=== PATIENT | female | born 1945 | race Caucasian/White ===

== ENCOUNTER 2018-08-25 13:54 | Emergency (ER) | payer OTHER, BC ==
--- NOTE | 2018-08-25 14:16 | EDPHY ---
HPI/HX/ROS/PE/MDM Narrative: CHIEF COMPLAINT: Fall HPI: This patent is a 73-year-old female with history of sarcoidosis, anemia. This afternoon around 13:30, she was walking into [employer] for lunch and tripped over a broken section of curb. She took the majority of the impact on her right forehead, and her glasses broke in the process. She has significant swelling and bruising over her right eye. She denies any loss of consciousness, denies any nausea or neck pain. She did try to catch herself on her right hand and sustained a small abrasion to her right wrist, but denies any hand or wrist pain. She denies any other trauma. No recent illness or other complaints. REVIEW OF SYSTEMS: A comprehensive 10 system review of systems is otherwise negative aside from elements mentioned in the history of present illness and medical decision making. PMH: Sarcoidosis. Anemia. History of spine compression fractures. SOCIAL HISTORY: . at bedside. Lives in [place]. PHYSICAL EXAM: General:Patient is alert, in no acute distress. ENT: Large hematoma to the left forehead. Periorbital ecchymosis. Eyes are normal to inspection. ENT inspection otherwise normal. Neck: Normal inspection. Full range of motion. Respiratory:No respiratory distress. Breath sounds normal bilaterally. Cardiovascular: Regular rate and rhythm. Strong peripheral pulses. Normal cap refill. Abdomen:The abdomen is nontender to palpation. There are no peritoneal signs. There are normal bowel sounds. Back: Normal to inspection. No tenderness to palpation. Skin: Normal color. No rash. Warm and dry. Extremities: Normal appearance. Full range of motion. Neuro: Oriented x3. Normal motor function. Normal sensory function. ED Course: 73 y/o female presents with a large hematoma to her right forehead secondary to a mechanical fall about 45 minutes prior to arrival. Plan for CT head to r/o acute intracranial processes. Patient is otherwise well-appearing and denies any provocation for her fall other than the broken curb. 15:[address] Aguirre, radiologist. CT head negative for acute intracranial processes. Reassessed patient. Discussed imaging results. The patient and her are relieved that there is no evidence of acute intracranial processes at this time. Plan to discharge home in good condition. Follow up and return precautions discussed. The patient is comfortable with this plan. - Data Points Imaging Results: Imaging Impressions Head CT 08/25/18 14:17 Impression: 1. Large right frontal scalp hematoma with no acute intracranial findings. 2. Diffuse cerebral atrophy with periventricular and subcortical low attenuation consistent with chronic microvascular ischemic gliosis. Findings discussed with Rashi Appiah MD, 08/25/2018 at 14:58. General Time Seen by Provider: 08/25/18 14:08 Initial Vital Signs: Initial Vital Signs Temperature (C) 36.7 C 08/25/18 14:02 Heart Rate 81 08/25/18 14:02 Respiratory Rate 16 08/25/18 14:02 Blood Pressure 158/85 H 08/25/18 14:02 O2 Sat (%) 97 08/25/18 14:02 O2 Delivery Mode Room Air Allergies/Adverse Reactions: acetaminophen [From Percocet] Allergy (Verified 08/25/18 13:59) armodafinil [From Nuvigil] Allergy (Verified 08/25/18 13:59) oxycodone [From Percocet] Allergy (Verified 08/25/18 13:59) tramadol [From Ultram] Allergy (Verified 08/25/18 13:59) Home Medications: Medication Instructions Recorded Aspirin 81mg (*) 08/25/18 Cymbalta 08/25/18 Dilaudid 08/25/18 Fentanyl 25 Mcg/2.5ML-0.9%NaCl 08/25/18 Gabapentin 08/25/18 Methotrexate 08/25/18 Metoprolol Succinate 08/25/18 Vistaril 08/25/18 Xanax 08/25/18 Departure - Departure Disposition: Home, Routine, Self-Care Clinical Impression: Fall Qualifiers: Encounter type: initial encounter Qualified Code(s): W19.XXXA - Unspecified fall, initial encounter Traumatic hematoma of forehead Qualifiers: Encounter type: initial encounter Qualified Code(s): S00.83XA - Contusion of other part of head, initial encounter Forehead contusion Qualifiers: Encounter type: initial encounter Qualified Code(s): S00.83XA - Contusion of other part of head, initial encounter Periorbital ecchymosis of right eye Qualifiers: Encounter type: initial encounter Qualified Code(s): S00.11XA - Contusion of right eyelid and periocular area, initial encounter Condition: Good Instructions: Hematoma (ED), Facial Contusion (ED) Additional Instructions: Follow up with your primary care provider in 2-3 days. Bruising from your forehead may extend down your face over the next several days , as we discussed. Apply ice for comfort. Return to the Emergency Department for severe headache, vomiting, vision changes , confusion, fever or other concerns. Referrals: [facility] [Other] - As per Instructions Report Scribed for: Rashi Appiah Report Scribed by: Raissa Garcia Date of Report: 08/25/18 Time of Report: 15:29 Physician Review and Approval Statement: Portions of this note were transcribed by an ED scribe. I personally performed the history, physical exam, and medical decision making; and confirm the accuracy of the information in the transcribed note.
[2018-08-25 15:36] VITALS: BP 125/77
== END 2018-08-25 15:36 | disposition home or self-care (01) ==
DX: S00.83XA Contusion of other part of head, initial encounter (principal); S00.11XA Contusion of right eyelid and periocular area, initial encounter; W01.0XXA Fall on same level from slipping, tripping and stumbling without subsequent striking against object, initial encounter; Y92.511 Restaurant or cafe as the place of occurrence of the external cause; Y93.01 Activity, walking, marching and hiking